=== PATIENT | female | born 2000 | race Caucasian/White ===

== ENCOUNTER 2021-05-29 07:16 | Day surgery (SDC) | payer OTHER ==
[~2021-05-29] VITALS: Ht 157.5 cm; Wt 69.0 kg
[2021-05-29] MEDS ORDERED: EFFEXOR XR75 MG/CAP PO (08:12)
--- NOTE | 2021-05-29 08:15 | NUR ---
PATIENT AND AMBULATED IN TO ENDO UNIT. PATIENT HAS STEADY GAIT. PATIENT IS ALERT AND ORIENTED X 4. CONSENT EXPLAINED AND PATIENT SIGNED. ASSESSMENT COMPLETED. LUNGS CTA, HEART S1,S2 AND REGULAR. BOWEL SOUNDS HEARD. PULSES +2. CALL LIGHT EXPLAINED. IV STARTED TO RIGHT HAND 22 GAUGE X 1 STICK.
[2021-05-29 08:23] VITALS: BP 117/86; PULSE 80; TEMP 989.7
[2021-05-29 09:14] VITALS: TEMP 98
[2021-05-29 09:25] VITALS: BP 110/74; PULSE 66
[2021-05-29 09:45] VITALS: BP 103/75; PULSE 53
[2021-05-29 10:00] VITALS: BP 109/77; PULSE 73
--- NOTE | 2021-05-29 15:31 | NUR ---
PT RETURNED FROM ENDO PROCEDURE ROOM PER CART. PT ALERT, ORIENTATED AND TALKING WITH ENDO PROCEDURE NURSE. PT STATES, FEELING LOOPY LIKE SHE DID WHEN SHE HAD HER WISDOM TEETH OUT. DENIES PAIN, NAUSEA OR VOMITING AT THIS TIME. AT BEDSIDE. REQUESTS VANILLA PUDDING AND WATER. WILL CONTINUE TO MONITOR PROGRESS.
--- NOTE | 2021-05-29 15:37 | NUR ---
PT MORE AWAKE NOW AND TALKING TO HER . TOLERATING FOOD AND FLUIDS. IV REMOVED AND PATIENT TOLERATED WELL. DENIES NAUSEA.
--- NOTE | 2021-05-29 15:41 | NUR ---
PT WAS GIVEN DISMISSAL INSTRUCTIONS, VOICES UNDERSTANDING. LUNGS CLEAR, HRR, BOWEL SOUNDS HYPOACTIVE. PT DENIES QUESTIONS REGARDING DISCHARGE. PT CONTINUES TO DENY PAIN OR NAUSEA. PT WAS TAKEN OUT THROUGH PATIENT ENTRANCE VIA WC TO PT VEHICLE. PT WAS DRIVING.
== END 2021-05-29 10:15 | disposition home or self-care (01) ==
LOC: SDCO 07:16
DX: R19.7 Diarrhea, unspecified (principal); R10.9 Unspecified abdominal pain; R19.4 Change in bowel habit; R15.2 Fecal urgency; R14.0 Abdominal distension (gaseous); F32.9 Major depressive disorder, single episode, unspecified; F41.9 Anxiety disorder, unspecified; Z20.822 Contact with and (suspected) exposure to COVID-19
CPT/HCPCS: J2704; J7030

== ENCOUNTER → 2021-07-16 | Outpatient (CLI) | payer OTHER ==
[~2021-07-16] MED LIST: EFFEXOR XR75 MG/CAP PO
== END ==
LOC: COL.RAD 12:57
DX: R10.84 Generalized abdominal pain (principal)